=== PATIENT | female | born 1955 | race Hispanic/Latino ===

== ENCOUNTER → 2025-02-08 | Outpatient (CLI) | payer BC ==
--- NOTE | 2025-02-08 15:23 | HMCIMG ---
LUMBAR SPINE RADIOGRAPHS - 2-3 VIEWS INDICATION: Back pain COMPARISON: None FINDINGS: AP, lateral, with flexion and extension and neutral view.. There is mild dextroscoliosis of the lumbar spine with the apex at L2-L3.. Five nonrib-bearing lumbar vertebral bodies are noted. No acute fracture identified. Vertebral body heights are well-maintained. Disc spaces demonstrate narrowing at L4-L5. There is a grade 1-2 anterolisthesis of L4 over L5. This does not change with flexion-extension radiograph. The remaining intervertebral disc spaces are maintained. There are surgical clips in the right one from prior cholecystectomy. IMPRESSION: No fracture Dextroscoliosis with apex at L2-L3. Osteopenia Grade 1-2 anterolisthesis of L4 over L5.
== END | disposition home or self-care (01) ==
LOC: RAH 13:15
PROVIDERS: ATTEND Physical Medicine & Rehabilitation
DX: M43.16 Spondylolisthesis, lumbar region (principal); M41.86 Other forms of scoliosis, lumbar region; M53.3 Sacrococcygeal disorders, not elsewhere classified; M48.061 Spinal stenosis, lumbar region without neurogenic claudication; M85.88 Other specified disorders of bone density and structure, other site; Z90.49 Acquired absence of other specified parts of digestive tract
CPT/HCPCS: 72114